=== PATIENT | female | born 1965 | race Caucasian/White ===

== ENCOUNTER 2017-11-27 12:05 | Emergency (ER) | payer OTHER ==
[~2017-11-27] VITALS: Ht 162.6 cm; Wt 94.2 kg
[2017-11-27 12:07] VITALS: BP 177/110; PULSE 86; TEMP 36.9; O2SAT 97; Ht 162.6 cm; Wt 94.2 kg
[2017-11-27] MEDS ORDERED: POLYSOL3 OP (12:23)
[2017-11-27] MEDS ORDERED: OLOP0.1S3 OP (12:23)
--- NOTE | 2017-11-27 12:29 | EMERGENCY ROOM VISIT NOTE ---
ED Visit Note First contact with patient: 12:09 CHIEF COMPLAINT: Bilateral eye redness and itchy HISTORY OF PRESENT ILLNESS: This 52-year-old female presents to ER with chief complaint of bilateral eye itchiness and redness. The patient states that ever since she moved here from [place] she has had problems with her eyes. She states they get itchy intermittently and red. Sometimes there is a purulent drainage from the outer portion of the eye. She states over the last 2 days her symptoms have gotten worse. She denies any visual changes, dizziness or headaches. The patient denies getting anything in her eyes. She does not wear contacts. She has not used any [id number] eyedrops for her symptoms. REVIEW OF SYSTEMS: 6 system review was performed and was negative unless stated otherwise in history of present illness. PMH: Hypertension, diverticulitis, appendectomy, tonsillectomy hydroadenitis SOCIAL HISTORY: Patient recently moved here from [place]. Patient admits to tobacco use but denies any alcohol use. PHYSICAL EXAM: Vital Signs: Were reviewed reviewed Nurse's notes. GENERAL: 52- year-old white female appears in no acute distress. MENTAL STATUS: Alert and oriented 3. EYES: The pupils are round, equal, and react to light. EOMs are full. Bilateral conjunctiva with cobblestoning and erythema noted. There is also some redness noted at the outer canthus of both eyes on both the upper and lower eyelids. There is no foreign body visible under athe eyelid even after lid eversion. No foreign body was seen embedded in the cornea. EMERGENCY DEPARTMENT COURSE: The patient was evaluated. I had the casework specialist talk with the patient about getting her set up with a family physician in the area for routine health care. The patient was informed of treatment plan and was in agreement. DIAGNOSIS: Bilateral allergic/bacterial conjunctivitis DISCHARGE INSTRUCTIONS AND TREATMENT: Recommend taking [id number] antihistamine such as loratadine (Claritin) or Zyrtec daily. Use the Patanol eyedrops daily as directed. Try not to rub your eyes. Use the Polytrim eyedrops as directed. If symptoms persist or worsen, follow-up with your family doctor. Current/Historical Medications Scheduled Olopatadine Hcl (Patanol 0.1% Oph), 1 DROP OP BID Polymyxin B-Trimethoprim (Polytrim Oph Arabella), 1 DROPS OP Q6 Vital Signs Date Time Temp Pulse Resp B/P (MAP) Pulse Ox O2 Delivery O2 Flow Rate FiO2 11/27/17 12:07 36.9 86 18 177/110 97 Room Air Departure Information Prescriptions Olopatadine Hcl (PATANOL 0.1% OPH) 0.1 % Arabella 1 DROP OP BID for 30 Days, #1 BTL 3 Refills Prov: Aliza Nava PA-C 11/27/17 Polymyxin B-Trimethoprim (POLYTRIM OPH ARABELLA) 1 Arabella Arabella 1 DROPS OP Q6 for 7 Days, #10 ML Prov: Aliza Nava PA-C 11/27/17 Patient Instructions [facility]
== END 2017-11-27 12:33 | disposition home or self-care (01) ==
LOC: C.EDB 12:07 → C.EDD 12:33
DX: H10.13 Acute atopic conjunctivitis, bilateral (principal)